=== PATIENT | male | born 1970 | race African-American/Black ===

== ENCOUNTER 2019-11-09 18:35 | Emergency (ER) | payer OTHER ==
[~2019-11-09] VITALS: Ht 175.3 cm; Wt 79.4 kg
[2019-11-09 18:40] VITALS: BP 133/85
--- NOTE | 2019-11-09 19:07 | NUR ---
not in lobby when called to room
--- NOTE | 2019-11-09 19:25 | NUR ---
pt called to room, not in lobby
--- NOTE | 2019-11-09 19:51 | NUR ---
SEARCHED LOBBY AND RESTROOMS. PT NOT FOUND
== END 2019-11-09 19:54 | disposition left against medical advice (07) ==
LOC: ED 19:48
DX: R21 Rash and other nonspecific skin eruption (principal); Z53.21 Procedure and treatment not carried out due to patient leaving prior to being seen by health care provider

== ENCOUNTER 2019-11-11 12:42 | Emergency (ER) | payer OTHER ==
[~2019-11-11] VITALS: Ht 175.3 cm; Wt 79.0 kg
[2019-11-11 13:09] VITALS: BP 157/95
[2019-11-11] MEDS ORDERED: FAMOTIDINE 20 MG TABLET PO ONE (13:30)
[2019-11-11] MEDS ORDERED: DIPHENHYDRAMINE 25 MG CAPSULE PO ONE (13:30)
[2019-11-11] MEDS ORDERED: L.E.T SOLUTION TP ONE ×2 (13:30→13:49)
[2019-11-11] MEDS ORDERED: FAMOTIDINE 20 MG TABLET ONE (13:48)
[2019-11-11] MEDS ORDERED: DIPHENHYDRAMINE 25 MG CAPSULE ONE (13:49)
--- NOTE | 2019-11-11 14:06 | NUR ---
let AT 1400. PLAN FOR CLEAN EAR/MEDS PER DEC. NO SUTURES. UDT ON TDAP.
== END 2019-11-11 14:40 | disposition home or self-care (01) ==
LOC: ED 14:20
DX: S01.312A Laceration without foreign body of left ear, initial encounter (principal); L24.9 Irritant contact dermatitis, unspecified cause; F17.200 Nicotine dependence, unspecified, uncomplicated; W25.XXXA Contact with sharp glass, initial encounter; Y93.89 Activity, other specified; Y92.89 Other specified places as the place of occurrence of the external cause; Y99.8 Other external cause status
CPT/HCPCS: 99284; J7512; Q0163